=== PATIENT | female | born 1945 | race Caucasian/White ===

== ENCOUNTER 2017-08-21 07:10 | Emergency (ER) | payer OTHER ==
[~2017-08-21] VITALS: Ht 152.4 cm; Wt 65.3 kg
[~2017-08-21 07:10] MED LIST: ALTACE10 MG; COREG CR20 MG; LIPITOR20 MG; MAXIDEX5 ML; NASONEX17 GM; PREVACID30 MG; TRANXENE T-TAB7.5 MG; VITAMIN C100 MG; ZANTAC300 MG
[2017-08-21] MEDS ORDERED: SYNTHROID100 MCG (07:36)
== END 2017-08-21 10:44 | disposition home or self-care (01) ==
LOC: ER 07:10
DX: S50.01XA Contusion of right elbow, initial encounter (principal); W22.8XXA Striking against or struck by other objects, initial encounter; Y93.89 Activity, other specified; Y92.89 Other specified places as the place of occurrence of the external cause; Y99.8 Other external cause status

== ENCOUNTER 2018-04-12 18:07 | Emergency (ER) | payer OTHER ==
[~2018-04-12] VITALS: Ht 160 cm; Wt 63.5 kg
[~2018-04-12 18:07] MED LIST changes: +SYNTHROID100 MCG
== END 2018-04-13 00:38 | disposition home or self-care (01) ==
LOC: ER 18:07
DX: K52.89 Other specified noninfective gastroenteritis and colitis (principal)

== ENCOUNTER 2018-09-12 09:58 | Emergency (ER) | payer OTHER ==
[~2018-09-12] VITALS: Ht 152.4 cm; Wt 74.8 kg
== END 2018-09-12 17:53 | disposition home or self-care (01) ==
LOC: ER 09:58
DX: K52.89 Other specified noninfective gastroenteritis and colitis (principal)

== ENCOUNTER 2023-05-22 03:23 | Emergency (ER) | payer OTHER ==
[~2023-05-22] VITALS: Ht 152.4 cm; Wt 56.7 kg
== END 2023-05-22 07:28 | disposition home or self-care (01) ==
LOC: ER 03:23
DX: K30 Functional dyspepsia (principal); Z91.041 Radiographic dye allergy status; Z88.6 Allergy status to analgesic agent; Z88.8 Allergy status to other drugs, medicaments and biological substances; Z88.0 Allergy status to penicillin

== ENCOUNTER 2024-12-28 15:19 | Emergency (ER) | payer OTHER ==
[~2024-12-28] VITALS: Ht 152.4 cm; Wt 63.5 kg
[2024-12-28] MEDS ORDERED: PANTOPRAZOLE SODIUM 40 MG/VIAL VIAL IV ONE (16:30)
[2024-12-28 16:44] LABS: BASO % 0.5 % (0.1-1.2); EOS # 0.07 (0.04-0.54); EOS % 0.9 % (0.7-7.0); LYMPH # 1.07 (1.18-3.74); LYMPH % 14.0 % (19.3-53.1); MEAN PLATELET VOLUME 10.30 fl (9.4-12.4); MONO # 0.51 (0.24-0.82); MONO % 6.7 % (4.7-12.5); NEUT # 5.94 (1.56-6.13); NEUT % 77.6 % (34.0-71.1); RED CELL DISTRIBUTION WIDTH 11.9 % (11.6-14.4)
[2024-12-28 17:07] LABS: INR 1.05
[2024-12-28 17:14] LABS: ALT/SGPT 18.0 U/L (12-78); AST/SGOT 23.0 U/L (15-37); BILIRUBIN TOTAL 0.48 mg/dL (0.3-1.2); BUN CREA RATIO 14.0 (7.0-25.0); COVID-19 AG NEGATIVE (NEGATIVE); CREATININE SERUM 0.92 mg/dL (0.55-1.02); GFR 59.04; GLOBULINA 4.4 G/DL (2.4-3.5); GLUCOSE FASTING 130.0 mg/dL (65-100); OSMOLALITY SERUM 279.0 MOSM/KG (275-295)
[2024-12-28 18:04] LABS: URINE APPEARANCE Clear; URINE BACTERIA 51.5 uL (0.0-1933); URINE BILIRRUBIN Negative (NEGATIVE); URINE BLOOD Small; URINE COLOR Yellow; URINE EPITHELIAL CELLS 4.9 uL (0.0-38.8); URINE GLUCOSE Negative (NEGATIVE); URINE KETONE Negative (NEGATIVE); URINE LEUKOCYTE Small; URINE NITRATE Negative; URINE PROTEIN Trace (NEGATIVE); URINE RBC 23.2 uL (0.0-20.8); URINE UROBILINOGEN 0.2 E.U./dl; URINE WBC 23.5 uL (0.0-23.2)
[2024-12-28 18:07] LABS: URINE CAST 0.00 uL (0.0-1.40)
[2024-12-28] MEDS ORDERED: PEPCID AC20 MG PO (18:21)
[2024-12-28] MEDS ORDERED: METRONIDAZOLE500 MG PO (18:21)
== END 2024-12-28 19:07 | disposition home or self-care (01) ==
LOC: ER 15:19
PROVIDERS: General Practice
DX: K57.90 Diverticulosis of intestine, part unspecified, without perforation or abscess without bleeding (principal); R19.7 Diarrhea, unspecified; Z20.822 Contact with and (suspected) exposure to COVID-19; I10 Essential (primary) hypertension; Z88.0 Allergy status to penicillin; Z88.5 Allergy status to narcotic agent; Z88.6 Allergy status to analgesic agent; Z91.041 Radiographic dye allergy status
CPT/HCPCS: 36415; 74176; 96365; 99284; J3490